=== PATIENT | female | born 1940 | race Caucasian/White ===

== ENCOUNTER 2019-08-26 05:09 | Inpatient (IN) ==
--- NOTE | 2019-08-20 10:47 | EKG Report ---
Test Performed on : 08/20/2019 10:28:38 AM Test Reason : PAT Blood Pressure : / mmHG Vent. Rate : 089 BPM Atrial Rate : 089 BPM P-R Int : 206 ms QRS Dur : 092 ms QT Int : 370 ms P-R-T Axes : 073 007 077 degrees QTc Int : 450 ms Normal sinus rhythm. Normal ECG When compared with ECG of 19-OCT-2010 08:09, No significant change was found Confirmed by Brian Willson MD ([id number]) on 08/21/2019 3:40:12 PM
[2019-08-20 11:06] LABS: HEMATOCRIT 39.2 % (37.0-47.0); HEMOGLOBIN 11.9 g/dL (12.0-16.0); MCH 27.4 PG (27-31); MCHC 30.4 g/dL (33-37); MCV 90.3 FL (81-99); RBC 4.34 XMIL (4.2-5.4); WBC 12.57 X1000 (4.8-10.8)
[2019-08-20 11:49] LABS: AGAP 13; BUN 16 mg/dL (8-22); CALCIUM 8.8 mg/dL (8.8-10.2); CHLORIDE 101 mmol/L (98-107); COSMO 281; CREATININE 0.7 mg/dL (0.5-0.9); ESTIMATED GFR > 60; GLUCOSE 100 mg/dL (70-104); POTASSIUM 4.6 mmol/L (3.5-5.1); SODIUM 140 mmol/L (136-145); TCO2 26 mmol/L (25-35)
[2019-08-26] MEDS ORDERED: ENTEREG ONE (06:00)
[2019-08-26] MEDS ORDERED: LR 1,000 ML ONE ×2 (06:00→10:11)
[2019-08-26] MEDS ORDERED: INVANZ 1 GM/NS 1 GM/50 ML IVPB ONE (06:11)
[2019-08-26] MEDS ORDERED: XYLOCAINE-MPF 2% ONE ×2 (06:39→07:45)
[2019-08-26] MEDS ORDERED: DIPRIVAN 1% ONE (06:39)
[2019-08-26] MEDS ORDERED: EXPAREL 1.3% ONE (06:54)
[2019-08-26] MEDS ORDERED: MARCAINE 0.25% PF ONE (06:56)
[2019-08-26] MEDS ORDERED: ROBINUL ONE ×2 (07:45→09:18)
[2019-08-26] MEDS ORDERED: ZEMURON ONE (07:45)
[2019-08-26] MEDS ORDERED: DECADRON ONE (07:45)
[2019-08-26] MEDS ORDERED: QUELICIN (DOSE) ONE (07:45)
[2019-08-26] MEDS ORDERED: OFIRMEV 1000 MG/ISOTONIC SOLN 1,000 MG/100 ML BOTTLE ONE (07:45)
[2019-08-26] MEDS ORDERED: ZOFRAN ONE (07:45)
[2019-08-26 08:01] LABS: URINE SOURCE CATH
[2019-08-26 08:20] LABS: BILIRUBIN URINE NEGATIVE (NEGATIVE); BLOOD URINE NEGATIVE (NEGATIVE); COLOR YELLOW; GLUCOSE URINE NEGATIVE (NEGATIVE); KETONE URINE 20 mg/dL (NEGATIVE); LEUKOCYTES URINE TRACE (NEGATIVE); NITRITE URINE NEGATIVE (NEGATIVE); PH URINE 6.5; PROTEIN URINE 30 mg/dL (NEGATIVE); SP GRAVITY URINE 1.026; TURBIDITY URINE HAZY (CLEAR); UR EPITHELIAL CELLS >10 /HPF (<10); URINE BACTERIA NEGATIVE /HPF; URINE RBC TNTC /HPF (<10); URINE WBC <10 /HPF (<10); UROBILINOGEN URINE NORMAL (NORMAL)
[2019-08-26] MEDS ORDERED: DILAUDID ONE (09:24)
[2019-08-26] MEDS ORDERED: VENTOLIN HFA ONE (09:42)
[2019-08-26] MEDS ORDERED: DUONEB (A & A) ONE (10:32)
[2019-08-26] MEDS ORDERED: ZOFRAN IV PRN (11:20)
[2019-08-26] MEDS: LR 1,000 ML IV SCH ×2 (11:41→20:09)
[2019-08-26] MEDS: MORPHINE IV PRN ×2 (11:56→20:27)
[2019-08-26] MEDS: OFIRMEV 1000 MG/ISOTONIC SOLN 1,000 MG/100 ML BOTTLE IV SCH ×2 (13:28→20:29)
[2019-08-26] MEDS: ULTRAM PO PRN (15:00)
[2019-08-26] MEDS: VENTOLIN HFA INH SCH (20:14)
[2019-08-26] MEDS: ZOCOR PO SCH (20:27)
[2019-08-26] MEDS: PERIDEX MT SCH (20:27)
[2019-08-27] MEDS: ULTRAM PO PRN ×2 (00:34→21:51)
[2019-08-27] MEDS: OFIRMEV 1000 MG/ISOTONIC SOLN 1,000 MG/100 ML BOTTLE IV SCH ×2 (02:10→07:48)
[2019-08-27] MEDS: MORPHINE IV PRN ×2 (03:52→09:38)
[2019-08-27] MEDS: LR 1,000 ML IV SCH ×2 (07:46→17:27)
[2019-08-27] MEDS: LEXAPRO PO SCH ×2 (07:47→12:45)
[2019-08-27] MEDS: ENTEREG PO SCH ×3 (07:47→20:12)
[2019-08-27] MEDS: NEXIUM PO SCH ×2 (07:47→12:44)
[2019-08-27] MEDS: PERIDEX MT SCH ×3 (07:47→20:12)
[2019-08-27] MEDS: MAG-OX PO SCH ×2 (07:47→12:44)
[2019-08-27] MEDS: WELLBUTRIN XL PO SCH ×2 (07:48→12:44)
[2019-08-27] MEDS: LOVENOX SUBQ SCH ×2 (07:48→12:44)
[2019-08-27] MEDS: ADVAIR 500/50 DISKUS INH SCH (08:42)
[2019-08-27] MEDS: VENTOLIN HFA INH SCH ×2 (08:43→20:24)
--- NOTE | 2019-08-27 09:40 | GENERAL SURGERY PROGRESS NOTE ---
DATE: 08/27/2019 SUBJECTIVE: Doing well. She had some pain. Hemodynamically, she has been stable. OBJECTIVE: She is on 2 L nasal cannula, saturating in the low 90s. Abdomen is soft. Dressing is clean. Labs are pending this morning. ASSESSMENT AND PLAN: A 78-year-old female status post right colectomy. She is doing well. Her Churchill is out. She is on prophylactic Lovenox and proton pump inhibitor. She is encouraged to be out of bed and ambulate and participate with aggressive pulmonary toileting. She is on appropriate home medications. cc: Reji Hernandez MD
--- NOTE | 2019-08-27 09:42 | OPERATIVE NOTE ---
PROCEDURE DATE: 08/27/2019 PREOPERATIVE DIAGNOSIS: Ascending colon cancer. POSTOPERATIVE DIAGNOSIS: Ascending colon cancer. PROCEDURES PERFORMED: 1. Open right colectomy. 2. Extensive lysis of adhesions. 3. Primary repair of incisional hernia. 4. High lymphadenectomy with high ligation of the ileocolic pedicle. ESTIMATED BLOOD LOSS: 50 mL. SPECIMENS: Right colon. ANESTHESIA: General with a TAP. INDICATIONS: A 78-year-old female who had a large ulcerative lesion in her ascending colon. She had bleeding and partial obstructive-type symptoms. FINDINGS: There was a large ascending colon mass just distal to the cecum. There were adhesions from the mass to the proximal transverse colon. She had a significant amount of intra-abdominal adhesions, specifically in the upper quadrants and right upper quadrant of her abdomen from prior surgery, and an upper midline incisional hernia. The proximal small bowel was dilated and relatively decompressed the transverse colon. There was no evidence of metastatic disease within the abdomen. DESCRIPTION OF PROCEDURE: Risks, benefits, and alternatives were discussed with the patient, and she consented for the procedure. Seen preoperatively, and surgical site was confirmed. She was taken to the operating room, placed in the supine position, and general anesthesia was induced. Churchill catheter was placed, and a TAP block was performed by Anesthesia. For details, please see their record. Pre-incisional antibiotics were administered. After a time-out and prepping her abdomen with chlorhexidine solution and draping her in the usual fashion, we made a midline incision through her previous scar. We entered the abdomen in the lower quadrants where this was more virgin territory, and began working more cephalad, lysing adhesions. This took greater than an hour to gain access into the abdomen. After this, we began with the transverse colon distally, entering the lesser sac, mobilizing the greater omentum off and working proximally, and then starting laterally, mobilizing the white line. We took down the hepatic flexure in its entirety, protecting the retroperitoneal structures. This was quite adherent to the duodenum, and she had adhesions up to the gallbladder fossa from her prior cholecystectomy, but we were able do this safely, protecting the structures. At this point, a wound protector was placed, and we eviscerated the right colon, and resected distally where the cecal mass was stuck to the transverse colon mass using a blue load JULIANN stapler. Prior to this, we dissected the pedicle down to its junction with the SMA. A test clamp was performed, and we confirmed that there was a maintained pulse in the small bowel mesentery. We then divided the pedicle with 2 fires of the LigaSure, and completed our wide lymphadenectomy. The right branch of middle colic was also divided, preserving the main branch of the middle colic, and then the proximal distal specimen was divided. The specimen was passed off. There is well perfused ileum as well as distal transverse colon. Please note that she had a small Meckel's diverticulum that was not inflamed. At this point, a stapled [id number] functional end-to-end anastomosis was performed with an 80 mm blue load stapler, and a second fire was used to close the common enterotomy. We imbricated the corners and oversewed the staple line with 3-0 Vicryl sutures. An off-loading suture was placed. We then closed the mesentery with a running 3-0 Vicryl suture that was placed back in the right upper quadrant. We ensured that the small bowel was in its neutral position, placed omentum over the small bowel, and irrigated, confirming hemostasis. We then mobilized back to healthy fascia at the site of the hernia to provide good tension-free closure, and we did this successfully. We then reapproximated the fascia with a #1 running looped PDS suture after changing our gloves and obtaining new clean instruments. The superficial wound was irrigated, and the skin was closed with surgical clips. She tolerated it well. There was no complication. She was awoken and transferred to recovery. I spoke with family. cc: Reji Hernandez MD
[2019-08-27 09:51] LABS: HEMATOCRIT 34.9 % (37.0-47.0); HEMOGLOBIN 10.6 g/dL (12.0-16.0); MCH 27.7 PG (27-31); MCHC 30.4 g/dL (33-37); MCV 91.4 FL (81-99); MPV 9.1 FL (7.4-10.4); RBC 3.82 XMIL (4.2-5.4); WBC 12.41 X1000 (4.8-10.8)
[2019-08-27 10:11] LABS: AGAP 9; BUN 12 mg/dL (8-22); CALCIUM 7.7 mg/dL (8.8-10.2); CHLORIDE 101 mmol/L (98-107); COSMO 275; CREATININE 0.5 mg/dL (0.5-0.9); ESTIMATED GFR > 60; GLUCOSE 122 mg/dL (70-104); POTASSIUM 4.2 mmol/L (3.5-5.1); SODIUM 137 mmol/L (136-145); TCO2 27 mmol/L (25-35)
[2019-08-27] MEDS: INCRUSE ELLIPTA INH SCH (11:40)
[2019-08-27] MEDS ORDERED: TUMS PO PRN (13:45)
[2019-08-27] MEDS: DILAUDID IV PRN ×2 (14:40→20:12)
[2019-08-27] MEDS: ZOCOR PO SCH (20:12)
[2019-08-28] MEDS: DILAUDID IV PRN ×2 (01:20→13:44)
[2019-08-28] MEDS: LR 1,000 ML IV SCH ×3 (02:56→21:29)
[2019-08-28] MEDS: ULTRAM PO PRN ×2 (08:00→15:59)
[2019-08-28] MEDS: ADVAIR 500/50 DISKUS INH SCH (08:12)
[2019-08-28] MEDS: VENTOLIN HFA INH SCH ×2 (08:12→19:55)
[2019-08-28] MEDS: INCRUSE ELLIPTA INH SCH (08:12)
[2019-08-28] MEDS: WELLBUTRIN XL PO SCH (09:55)
[2019-08-28] MEDS: NEXIUM PO SCH (09:56)
[2019-08-28] MEDS: ENTEREG PO SCH ×2 (09:56→21:26)
[2019-08-28] MEDS: MAG-OX PO SCH (09:57)
[2019-08-28] MEDS: PERIDEX MT SCH ×2 (09:57→21:26)
[2019-08-28] MEDS: LEXAPRO PO SCH (09:57)
[2019-08-28] MEDS: LOVENOX SUBQ SCH (09:57)
[2019-08-28] MEDS: ZOCOR PO SCH (21:26)
[2019-08-29] MEDS: ULTRAM PO PRN (00:06)
--- NOTE | 2019-08-29 00:28 | GENERAL SURGERY PROGRESS NOTE ---
DATE: 08/28/2019 SUBJECTIVE: She is doing well. She is voiding. She is ambulating around the room. Her pulmonary status is improving. No fevers. No tachycardia. OBJECTIVE: Blood pressures have been okay. Abdomen: Soft. Her incision is intact. No cellulitis. LABORATORY DATA: I reviewed her labs and nothing new this morning. ASSESSMENT AND PLAN: This is a 78-year-old female, status post open right colectomy. She is doing well. We will keep her on clear liquids. Awaiting return of bowel function. I am going to decrease her IV fluids. We will continue her current care. cc: Reji Hernandez MD
[2019-08-29] MEDS: LR 1,000 ML IV SCH (02:13)
[2019-08-29] MEDS: ADVAIR 500/50 DISKUS INH SCH (07:23)
[2019-08-29] MEDS: VENTOLIN HFA INH SCH ×2 (07:23→23:24)
[2019-08-29] MEDS: WELLBUTRIN XL PO SCH (08:42)
[2019-08-29] MEDS: MAG-OX PO SCH (08:42)
[2019-08-29] MEDS: ENTEREG PO SCH ×2 (08:43→21:05)
[2019-08-29] MEDS: PERIDEX MT SCH ×2 (08:43→21:05)
[2019-08-29] MEDS: NEXIUM PO SCH (08:43)
[2019-08-29] MEDS: LEXAPRO PO SCH (08:43)
[2019-08-29] MEDS: LOVENOX SUBQ SCH (08:43)
[2019-08-29] MEDS: DILAUDID IV PRN ×3 (10:22→21:05)
--- NOTE | 2019-08-29 11:14 | GENERAL SURGERY PROGRESS NOTE ---
DATE: 08/29/2019 SUBJECTIVE: She is doing well, no flatus yet. She is voiding. She is ambulating. Breathing comfortably. No fever, no tachycardia. Incision is intact. Abdomen soft, nondistended. No new labs this morning. ASSESSMENT AND PLAN: This is a 78-year-old female status post open right colectomy. She is doing well. Will stop her IV fluids today. She is taking adequate p.o. When she has return of bowel function, will advance her diet to soft and let her go home. Dr. Palafox is following the patient for me over the next few days. cc: Reji Hernandez MD
[2019-08-29] MEDS: ZOCOR PO SCH (21:05)
[2019-08-30] MEDS: DILAUDID IV PRN ×3 (03:27→21:02)
[2019-08-30] MEDS: INCRUSE ELLIPTA INH SCH (06:17)
[2019-08-30] MEDS: ADVAIR 500/50 DISKUS INH SCH (07:40)
[2019-08-30] MEDS: VENTOLIN HFA INH SCH ×2 (07:40→19:37)
[2019-08-30] MEDS: MAG-OX PO SCH (09:51)
[2019-08-30] MEDS: LEXAPRO PO SCH (09:51)
[2019-08-30] MEDS: LOVENOX SUBQ SCH (09:51)
[2019-08-30] MEDS: WELLBUTRIN XL PO SCH (09:51)
[2019-08-30] MEDS: NEXIUM PO SCH (09:51)
[2019-08-30] MEDS: ENTEREG PO SCH ×2 (09:51→21:02)
[2019-08-30] MEDS: PERIDEX MT SCH ×2 (09:51→21:02)
--- NOTE | 2019-08-30 13:57 | GENERAL SURGERY PROGRESS NOTE ---
DATE: 08/30/2019 SUBJECTIVE: The patient is doing okay. She denies severe pain, nausea, or vomiting. She is tolerating some clear liquids. She has not passed gas or had a bowel movement yet. OBJECTIVE: She is afebrile. Vital signs are stable.General: She is awake, alert, oriented x3. No acute distress. GI: Soft, nondistended, appropriately tender. There are a few bowel sounds. ASSESSMENT/PLAN: 78-year-old female status post right colectomy. We are awaiting better bowel function. I will advance her to a full liquid diet. I have encouraged ambulation. cc: MD Reji Hester MD
[2019-08-30] MEDS: ZOCOR PO SCH (21:02)
[2019-08-31] MEDS: ADVAIR 500/50 DISKUS INH SCH (07:32)
[2019-08-31] MEDS: VENTOLIN HFA INH SCH (07:32)
[2019-08-31] MEDS: INCRUSE ELLIPTA INH SCH (07:33)
[2019-08-31] MEDS: MAG-OX PO SCH (09:03)
[2019-08-31] MEDS: LEXAPRO PO SCH (09:04)
[2019-08-31] MEDS: NEXIUM PO SCH (09:04)
[2019-08-31] MEDS: PERIDEX MT SCH (09:04)
[2019-08-31] MEDS: LOVENOX SUBQ SCH (09:04)
[2019-08-31] MEDS: ENTEREG PO SCH (09:04)
[2019-08-31] MEDS: WELLBUTRIN XL PO SCH (09:04)
[2019-08-31 16:27] VITALS: BP 146/65
--- NOTE | 2019-08-31 18:24 | GENERAL SURGERY PROGRESS NOTE ---
DATE: 08/31/2019 SUBJECTIVE: The patient is doing better today. She has passed gas and had a small bowel movement. She has been walking. She is tolerating her diet. She remains on 2 L of oxygen during the daytime without which her saturations drop into the 80s. She does use oxygen at home normally due to COPD. OBJECTIVE: Vitals: She is afebrile. Vital signs are stable. Again, O2 saturation is in the mid 90s with nasal cannula. Respiratory: Bilateral breath sounds. No work of breathing. Gastrointestinal: Soft, minimally tender. Incision clean, dry, and intact. She has good bowel sounds. LABORATORY: None today. ASSESSMENT/PLAN: 78-year-old female status post right colectomy. She is making good progress. We will discharge her home today. She will use her oxygen at home as needed and try to wean down to only using at night as before as her breathing improves over this week. She will follow up with Dr. Hernandez later this week. cc: MD Reji Hester MD
[2019-08-31] MEDS: ULTRAM PO PRN (18:25)
== END 2019-08-31 18:38 | disposition home or self-care (01) | DRG 331 ==
LOC: SURHOLD 05:09 → 4N 07:27 → 2N 10:05
PROVIDERS: ADMIT Surgery; ATTEND Surgery